=== PATIENT | male | born 1930 | race Caucasian/White ===

== ENCOUNTER 2017-09-27 10:10 | Outpatient (CLI) | payer OTHER ==
[~2017-09-27 10:10] MED LIST: ALPRAZOLAM0.5 MG PO; ANTIVERT12.5 MG PO; ARICEPT10 MG PO; BUDEPRION SR150 MG PO; CIPRO500 MG PO; CRESTOR10 MG PO; Coreg PO; ECOTRIN81 MG PO; FLAGYL; FLAGYL375 MG PO; GUAIFENESI100 MG/52 PO; INTEGRA PLUS C1 EACH PO; LEVAQUIN750 MG PO; LEVOTHYROXINE75 MCG PO; LEVSIN/SL0.125 MG PO; LOTRISONE CREAM45 GM TP; METOPROLOL SUCC25 MG PO; NEURONTIN300 MG PO; Neurin-Sl Tablet Sl SL; PEPSID; PROSCAR5 MG PO; PROTONIX40 MG PO; SYNTHROID50 MCG PO; TAMS0.4C PO; TRAVATAN 0.0042.5 ML OP; VASOTEC2.5 MG PO; XANAX1 MG PO; ZANTAC150 M1 PO
== END 2017-09-27 10:25 | disposition home or self-care (01) ==
LOC: LAB 10:10
DX: Z60.2 Problems related to living alone (principal); I35.8 Other nonrheumatic aortic valve disorders; I13.10 Hypertensive heart and chronic kidney disease without heart failure, with stage 1 through stage 4 chronic kidney disease, or unspecified chronic kidney disease; I70.0 Atherosclerosis of aorta; I67.2 Cerebral atherosclerosis; I70.213 Atherosclerosis of native arteries of extremities with intermittent claudication, bilateral legs; E78.2 Mixed hyperlipidemia; E11.22 Type 2 diabetes mellitus with diabetic chronic kidney disease; R73.01 Impaired fasting glucose; E03.8 Other specified hypothyroidism; J03.90 Acute tonsillitis, unspecified; K57.30 Diverticulosis of large intestine without perforation or abscess without bleeding; R10.11 Right upper quadrant pain; K59.00 Constipation, unspecified; K66.0 Peritoneal adhesions (postprocedural) (postinfection); N18.3 Chronic kidney disease, stage 3 (moderate); B02.9 Zoster without complications; F32.9 Major depressive disorder, single episode, unspecified; M15.0 Primary generalized (osteo)arthritis; G60.3 Idiopathic progressive neuropathy; J06.9 Acute upper respiratory infection, unspecified; L21.8 Other seborrheic dermatitis; E55.9 Vitamin D deficiency, unspecified; Z68.24 Body mass index [BMI] 24.0-24.9, adult; E53.8 Deficiency of other specified B group vitamins; D50.8 Other iron deficiency anemias; N39.0 Urinary tract infection, site not specified; D69.6 Thrombocytopenia, unspecified

== ENCOUNTER 2018-12-15 13:11 | Emergency (ER) | payer OTHER ==
[~2018-12-15] VITALS: Ht 165.1 cm; Wt 69.4 kg
== END 2018-12-15 17:22 | disposition home or self-care (01) ==
LOC: ER 13:11
DX: M25.552 Pain in left hip (principal); M54.5 Low back pain

== ENCOUNTER 2018-12-24 09:52 | Emergency (ER) | payer OTHER ==
[~2018-12-24] VITALS: Ht 165.1 cm; Wt 71.2 kg
[2018-12-24] MEDS ORDERED: ROBAXIN500 MG PO (14:57)
[2018-12-24] MEDS ORDERED: CELECOXIB100 MG PO (14:57)
== END 2018-12-24 15:01 ==
LOC: ER 09:52
DX: I70.213 Atherosclerosis of native arteries of extremities with intermittent claudication, bilateral legs (principal); M54.42 Lumbago with sciatica, left side